=== PATIENT | female | born 2000 | race Caucasian/White ===

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

== ENCOUNTER 2021-01-25 15:37 | Emergency (ER) | payer BC, MEDICAID ==
[~2021-01-25] VITALS: Ht 157.5 cm; Wt 61.5 kg
--- NOTE | 2021-01-25 16:17 | NUR ---
Pt ambulating to bathroom, equal steady gait.
--- NOTE | 2021-01-25 16:29 | NUR ---
Pt reports this is her first . Last menstrual period 11/24/2020. Has been having n/v for 1 week. Has taken nexium, laura, and tums at home. Hx acid reflux as well. Reports she has been struggling to get an OB appoinment as most places do not take her insurance but currently has one scheduled for February 22. Boyfriend "dad" at bedside. Pt not currently vomitting, resting comfortably in bed.
--- NOTE | 2021-01-25 16:29 | NUR ---
UA collected and tubed to lab.
[2021-01-25] MEDS ORDERED: ONDANSETRON 2MG/ML, 2ML ONE (16:57)
[2021-01-25] MEDS ORDERED: SODIUM CHLORIDE 0.9% 1,000ML IVBOLUS ONE (17:00)
[2021-01-25] MEDS ORDERED: SODIUM CHLORIDE FLUSH 10ML SYR IVF ONE (17:00)
[2021-01-25] MEDS ORDERED: ONDANSETRON 2MG/ML, 2ML IVPush ONE (17:00)
--- NOTE | 2021-01-25 17:13 | NUR ---
Dr. Alcantar at bedside. IV started, medicated per eMAR, NS infusing, labs drawn.
[2021-01-25 17:27] LABS: BASOPHILS % (AUTO) 0 % (0-1); EOSINOPHILS % (AUTO) 1 % (1-7); LYMPHOCYTES % (AUTO) 17 % (22-44); MEAN CORPUSCULAR HEMOGLOBIN 24.4 pg (27.0-34.8); MEAN CORPUSCULAR HGB CONC 31.3 g/dL (32.4-35.8); MEAN PLATELET VOLUME 9.3 fL (7.4-10.4); MONOCYTES % (AUTO) 4 % (2-9); NEUTROPHILS % (AUTO) 78 % (42-75); PLATELET COUNT 352 x10^3/uL (130-400); RED BLOOD COUNT 4.52 x10^6/uL (3.82-5.3); RED CELL DISTRIBUTION WIDTH 15.9 % (9.6-15.2)
[2021-01-25 17:28] LABS: MD MORPH REVIEW ONLY
[2021-01-25 17:37] LABS: ALANINE AMINOTRANSFERASE 23 U/L (12-78); ALBUMIN 4.2 g/dL (3.4-5.0); ANION GAP 8 mmol/L (5-15); CHLORIDE 106 mmol/L (98-107); CREATININE 0.61 mg/dL (0.55-1.02)
[2021-01-25 17:39] LABS: ALKALINE PHOSPHATASE 87 U/L (45-117); BILIRUBIN,TOTAL 0.5 mg/dL (0.2-1.0); TOTAL PROTEIN 8.1 g/dL (6.4-8.2)
--- NOTE | 2021-01-25 17:51 | NUR ---
Provided pt warm blanket. Pt resting comfortably on gurney, breathing equal non-labored, call light in reach.
[2021-01-25 17:56] LABS: MICROSCOPIC INDICATED
[2021-01-25 18:00] LABS: ANISOCYTOSIS 1+; HYPOCHROMIA 1+; MICROCYTOSIS 1+
[2021-01-25 18:01] LABS: <PLATELET ESTIMATE> ADEQUATE; <PLT MORPHOLOGY> NORMAL PLT MORPH
--- NOTE | 2021-01-25 18:26 | NUR ---
Pt ambulating to bathroom, equal steady gait.
[2021-01-25] MEDS ORDERED: POTASSIUM CHLORIDE 20 MEQ TAB.ER.PRT ONE (19:07)
--- NOTE | 2021-01-25 19:15 | NUR ---
Dr. Alcantar at bedside.
[2021-01-25] MEDS ORDERED: POTASSIUM CHLORIDE 20 MEQ TAB.ER.PRT PO ONE (19:30)
--- NOTE | 2021-01-25 19:57 | NUR ---
Pt resting comfortably, reports she feels better. Awaiting DC.
[2021-01-25 19:59] VITALS: BP 116/69
--- NOTE | 2021-01-25 20:24 | NUR ---
IV removed, catheter intact, hemostasis achieved, dressing applied. Pt agrees with and understands discharge plan and instructions.
--- NOTE | 2021-01-25 20:24 | NUR ---
Provided pt work note.
== END 2021-01-25 20:30 | disposition home or self-care (01) ==
LOC: ED 16:28
DX: O21.0 Mild hyperemesis gravidarum (principal); O99.611 Diseases of the digestive system complicating pregnancy, first trimester; K21.9 Gastro-esophageal reflux disease without esophagitis; Z3A.09 9 weeks gestation of pregnancy; Z87.891 Personal history of nicotine dependence; Z90.89 Acquired absence of other organs
CPT/HCPCS: 36415; 80053; 81001; 85025; 87086; 96361; 96374; 99283; J2405; J7030